=== PATIENT | female | born 1980 | race Two or more races ===

== ENCOUNTER 2023-01-09 08:35 | Outpatient (CLI) | payer OTHER | END 2023-01-09 08:40 | disposition home or self-care (01) | LOC: SONOGRAMA 08:35 | PROVIDERS: ATTEND Pathology Anatomic Pathology & Clinical Pathology | DX: L72.0 Epidermal cyst (principal); R22.1 Localized swelling, mass and lump, neck; R59.9 Enlarged lymph nodes, unspecified ==